=== PATIENT | male | born 1940 | race Caucasian/White ===

== ENCOUNTER 2017-12-26 22:27 | Inpatient (IN) | payer OTHER ==
[2017-12-26] MEDS ORDERED: ACETAMINOPHEN 1000 MG/100 ML VIAL (NON FORMULARY) IVPB ONE (23:28)
[2017-12-26] MEDS ORDERED: SODIUM CHLORIDE 1,000 ML IV STA (23:28)
[2017-12-26] MEDS ORDERED: morphine CARPU-JECT 4 MG/1 ML DISP.SYRIN IVPUSH ONE (23:41)
[2017-12-26] MEDS ORDERED: MORPHINE SULFATE 10 MG/1 ML *VIAL ONE (23:44)
[2017-12-26 23:58] LABS: BASO % 0.3 % (0-2.0); EOS % 0.2 % (0-4.5); HEMATOCRIT 44.7 % (35.4-49); MCH 29.6 pg (25.7-33.7); MCHC 33.5 g/dl (32.0-35.9); MEAN CELL VOLUME 88.5 fl (80-96); MEAN PLT VOLUME 6.8 fl (7.5-11.1); MONO % 7.3 % (3.8-10.2); NEUT % 79.2 % (42.8-82.8); PLATELET COUNT 264 K/MM3 (134-434); RBC 5.06 M/mm3 (4.00-5.60); WHITE BLOOD COUNT 6.7 K/mm3 (4.0-10.0)
[2017-12-27 00:13] LABS: INR 0.98 (0.82-1.09); PROTHROMBIN TIME (PATIENT) 11.1 SEC (9.98-11.88)
[2017-12-27] MEDS ORDERED: LIDOCAINE HCL 2% JELLY (5 ML/TUBE) ONE (00:13)
--- NOTE | 2017-12-27 00:13 | PDOC ---
History of Present Illness - General Chief Complaint: Urinary Catheter Problem Stated Complaint: PAIN Time Seen by Provider: 12/26/17 23:22 - History of Present Illness Initial Comments: 12/26/17 23:54 "The patient is a 77 year old male presenting with clogged jimenez catheter. 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 Kovacs. He subsequently had a jimenez placed and was discharged from the hospital at 8PM today. Pt states that the jimenez did not drain any urine since it was placed. He has only seen a small amount of blood clot pass into the jimenez bag. He now complains of severe suprapubic pain The patient denies chest pain, shortness of breath, headache and dizziness. Denies fever, chills, nausea, vomit, diarrhea and constipation. Allergies: NKA Past surgical history: None reported Social history: No reported alcohol, drug, or cigarette use. Urologist: Dr. Kovacs" Past History - Past Medical History Allergies/Adverse Reactions: Allergies Allergy/AdvReac Type Severity Reaction Status Date / Time No Known Allergies Allergy Verified 12/26/17 22:52 Home Medications: Ambulatory Orders Tamsulosin HCl [Flomax -] 1 tab PO DAILY 12/23/17 Disorders: Yes (BPH) Hypercholesterolemia: Yes - Suicide/Smoking/Psychosocial Hx Smoking History: Never smoked Have you smoked in the past 12 months: No Information on smoking cessation initiated: No Hx Alcohol Use: No Drug/Substance Use Hx: No Substance Use Type: None Hx Substance Use Treatment: No Review of Systems - Review of Systems Comments:: 12/27/17 00:13 "GENERAL/CONSTITUTIONAL: No fever or chills. No weakness. HEAD, EYES, EARS, NOSE AND THROAT: No change in vision. No ear pain or discharge. No sore throat. CARDIOVASCULAR: No chest pain or shortness of breath. RESPIRATORY: No cough, wheezing, or hemoptysis. GASTROINTESTINAL: (+) suprapubic pain. No nausea, vomiting, diarrhea or constipation. GENITOURINARY: (+) Clogged catheter. MUSCULOSKELETAL: No joint or muscle swelling or pain. No neck or back pain. SKIN: No rash NEUROLOGIC: No headache, vertigo, loss of consciousness, or change in strength/ sensation. ENDOCRINE: No increased thirst. No abnormal weight change. HEMATOLOGIC/LYMPHATIC: No anemia, easy bleeding, or history of blood clots. ALLERGIC/IMMUNOLOGIC: No hives or skin allergy." *Physical Exam - Vital Signs Last Vital Signs Temp Pulse Resp BP Pulse Ox 97.8 F 86 16 143/63 100 12/26/17 22:47 12/26/17 22:47 12/26/17 22:47 12/26/17 22:47 12/26/17 22:47 - Physical Exam Comments: 12/27/17 00:14 "GENERAL: Awake, alert, and fully oriented, in no acute distress HEAD: No signs of trauma EYES: PERRLA, EOMI, sclera anicteric, conjunctiva clear ENT: Auricles normal inspection, hearing grossly normal, nares patent, oropharynx clear without exudates. Moist mucosa NECK: Nontender, no stepoffs, Normal ROM, supple, no lymphadenopathy, JVD, or masses LUNGS: Breath sounds equal, clear to auscultation bilaterally. No wheezes, and no crackles HEART: Regular rate and rhythm, normal S1 and S2, no murmurs, rubs or gallops ABDOMEN: (+) suprapubic tenderness, normoactive bowel sounds. No guarding, no rebound. No masses EXTREMITIES: Normal range of motion, no edema. No clubbing or cyanosis. No cords, erythema, or tenderness : (+) Jimenez catheter in place, scant urine in bag with blood clot in tube and bag NEUROLOGICAL: Cranial nerves II through XII intact. 5/5 strength and sensation in all extremities, Normal speech, normal gait, normal cerebellar function SKIN: Warm, Dry, normal turgor, no rashes or lesions noted." ED Treatment Course - LABORATORY CBC & Chemistry Diagram: 12/26/17 23:53 12/26/17 23:53 Medical Decision Making - Medical Decision Making 12/27/17 00:16 77 M with clogged jimenez 2/2 blood clots. - Attempted irrigation - able to flush jimenez easily but without return of urine - Significant resistance met with attempt to pull back on syringe, with evacuation of small amount of clot - Spoke with Dr. Doyle, urologist information engineer for Dr. Kovacs, who recommended removal of jimenez catheter and replacement with larger catheter - Jimenez removed. Attempt to replace catheter unsuccessful - Spoke with Dr. Doyle again, who is now en route to ED to evaluate pt. 12/27/17 01:32 Coude catheter placed by Dr. Doyle, blood clots irrigated. Pt placed on CBI, to be admitted to hospitalist. 12/27/17 01:[address] Lopes as obs *DC/Admit/Observation/Transfer Diagnosis at time of Disposition: Gross hematuria - Discharge Dispostion Admit: Yes - Referrals Referrals: Sharri Tovar [Primary Care Provider] - - Patient Instructions - Post Discharge Activity - Attestations Physician Attestion: 12/27/17 01:47 I, Dr. Glenn Vasquez MD, attest that this document has been prepared under my direction and personally reviewed by me in its entirety. I further attest, that it accurately reflects all work, treatment, procedures and medical decision -making performed by me.
[2017-12-27 00:16] LABS: ACTIVATED PTT 22.4 SECONDS (26.9-34.4)
[2017-12-27 00:24] LABS: ALBUMIN 3.7 g/dl (3.4-5.0); ALK PHOS 93 U/L (45-117); ANION GAP 12 (8-16); BILIRUBIN,TOTAL 0.6 mg/dL (0.2-1.0); BLOOD UREA NITROGEN 22 mg/dL (7-18); CALCIUM 8.8 mg/dL (8.5-10.1); CHLORIDE 94 mmol/L (98-107); CO2 25 mmol/L (21-32); CREATININE 1.5 mg/dL (0.7-1.3); GLUCOSE,RANDOM 130 mg/dL (74-106); POTASSIUM 4.9 mmol/L (3.5-5.1); SGOT/AST 29 U/L (15-37); SGPT/ALT 20 U/L (12-78); SODIUM 131 mmol/L (136-145); TOT PROT 7.5 g/dl (6.4-8.2)
[2017-12-27] MEDS ORDERED: morphine CARPU-JECT 4 MG/1 ML DISP.SYRIN IVPUSH ONE (00:27)
[2017-12-27] MEDS ORDERED: MORPHINE SULFATE 10 MG/1 ML *VIAL ONE (00:32)
[2017-12-27] MEDS ORDERED: LIDOCAINE HCL 2% JELLY 10 ML CARTRIDGE ONE (00:50)
[2017-12-27] MEDS ORDERED: LIDOCAINE HCL 2% JELLY (30 ML/TUBE) TP ONE (01:12)
--- NOTE | 2017-12-27 01:18 | CON.GU ---
Consult - History of Present Illness History of Present Illness: 77 yo male s/p TURBT earlier today, now with gross hematuria and clot retention. 3 way jimenez catheter placed and multiple clots irrigated. Pt feeling much more comfort. - Alcohol/Substance Use Hx Alcohol Use: No - Smoking History Smoking history: Never smoked Have you smoked in the past 12 months: No Home Medications - Allergies Allergies/Adverse Reactions: Allergies Allergy/AdvReac Type Severity Reaction Status Date / Time No Known Allergies Allergy Verified 12/26/17 22:52 - Home Medications Home Medications: Ambulatory Orders Tamsulosin HCl [Flomax -] 1 tab PO DAILY 12/23/17 Physical Exam- Vital Signs: Vital Signs Temperature 97.8 F 12/26/17 22:47 Pulse Rate 86 12/26/17 22:47 Respiratory Rate 16 12/26/17 22:47 Blood Pressure 143/63 12/26/17 22:47 O2 Sat by Pulse Oximetry (%) 100 12/26/17 22:47 Renal/: Yes: Hematuria Labs: CBC, BMP 12/26/17 23:53 12/26/17 23:53 Problem List - Problems (1) Gross hematuria Assessment/Plan: jimenez to CBI will start Amicar Code(s): R31.0 - GROSS HEMATURIA
[2017-12-27] MEDS ORDERED: AMINOCAPROIC ACID IVPB ONE (01:30)
[2017-12-27] MEDS ORDERED: SODIUM CHLORIDE IVPB ONE (01:30)
[2017-12-27] MEDS ORDERED: CEFTRIAXONE 1 GM/50 ML BAG ONE (02:03)
[2017-12-27] MEDS: CEFTRIAXONE 1 G/50 ML PREMIX 50 ML IVPB SCH ×2 (02:07→20:40)
[2017-12-27 02:54] VITALS: BMI 27.4
--- NOTE | 2017-12-27 02:58 | PN ---
Teaching Attending Note Name of Resident: Darshana Brown ATTENDING PHYSICIAN STATEMENT I saw and evaluated the patient. Chart, data reviewed. I reviewed the resident's note and discussed the case with the resident. I agree with the resident's findings and plan as documented. SUBJECTIVE: 77 y/o M with PMhx of BPH, HLD, s/p resection of bladder mass 12/26, d/c with jimenez presented with severe suprapubic abdominal pain that started shortly after procedure. Jimenez was not draining, blood clots were draining in jimenez bag. Urology (Dr. Doyle) saw patient in the ED and placed 3 way catheter, and performed irrigation which relieved the obstruction and patient felt immediate relief. Urine which was draining was red. OBJECTIVE: Last Vital Signs Temp Pulse Resp BP Pulse Ox 97.8 F 76 18 162/82 97 12/27/17 02:50 12/27/17 02:50 12/27/17 02:50 12/27/17 02:50 12/27/17 03:01 general -nad, appears comfortable heent- at, nc, moist oral mucosa neck -supple cv -s1+s2+ rrr chest- cta b/l abdomen -soft, nt, BS+ jimenez in place -draining reddish urine Abnormal Lab Results 12/26/17 12/26/17 12/26/17 23:53 23:53 23:53 MPV 6.8 L PTT (Actin FS) 22.4 L Sodium 131 L Chloride 94 L BUN 22 H Creatinine 1.5 H D Random Glucose 130 H D ASSESSMENT AND PLAN: #Jimenez catheter obstruction- blood clots, now relieved after catheter change and irrigation. Hematuria however BP and H,H stable -continue jimenez catheter -monitor BP closely -monitor H,H -urology evaluation -avoid ASA or heparin #PRETTY- likely obstructive in nature as patient had blood clots in urine -renal/bladder U/S -UA, urine lytes -IV fluid hydration -avoid nephrotoxic meds -I/O , daily weights #DVT ppx -SCDs
[2017-12-27] MEDS ORDERED: SODIUM CHLORIDE 1,000 ML IV SCH (03:30)
[2017-12-27] MEDS: SODIUM CHLORIDE IVPB SCH ×6 (03:38→22:33)
[2017-12-27] MEDS: AMINOCAPROIC ACID IVPB SCH ×6 (03:38→22:33)
--- NOTE | 2017-12-27 03:50 | HP ---
HISTORY OF PRESENT ILLNESS: Patient is a 77 y/o M with PMhx of BPH, HLD, s/p TURBT 12/26, discharged yesterday with jimenez presented with severe suprapubic abdominal pain that started after procedure. Patient states the jimenez did not drain any urine since it was placed. Patient saw blood clots pass in the jimenez bag. Urology (Dr. Doyle) saw patient in the ED and placed 3 way catheter which relieved the obstruction. Patient says he is currently asymptomatic. Denies abdominal pain, fever, nausea, vomiting, chest pain, dizziness, sob, dysuria. ER course was notable for: (1) Fluids, 1x Ceftriaxone (2) Abicar, 3 way catheter insertion Recent Travel: n/a PAST MEDICAL HISTORY: BPH, HLD PAST SURGICAL HISTORY: none Social History: Smoking: denies Alcohol: denies Drugs: denies Family History: Allergies No Known Allergies Allergy (Verified 12/26/17 22:52) HOME MEDICATIONS: Home Medications Medication Instructions Recorded Tamsulosin HCl [Flomax -] 1 tab PO DAILY 12/23/17 Atorvastatin Ca [Lipitor] 20 mg PO HS 12/27/17 REVIEW OF SYSTEMS CONSTITUTIONAL: Absent: fever, chills, diaphoresis, generalized weakness, malaise, loss of appetite, weight change HEENT: Absent: rhinorrhea, nasal congestion, throat pain, throat swelling, difficulty swallowing, mouth swelling, ear pain, eye pain, visual changes CARDIOVASCULAR: Absent: chest pain, syncope, palpitations, irregular heart rate, lightheadedness , peripheral edema RESPIRATORY: Absent: cough, shortness of breath, dyspnea with exertion, orthopnea, wheezing, stridor, hemoptysis GASTROINTESTINAL: Absent: abdominal pain, abdominal distension, nausea, vomiting, diarrhea, constipation, melena, hematochezia GENITOURINARY: Absent: dysuria, frequency, urgency, hesitancy, hematuria, flank pain, genital pain MUSCULOSKELETAL: Absent: myalgia, arthralgia, joint swelling, back pain, neck pain SKIN: Absent: rash, itching, pallor HEMATOLOGIC/IMMUNOLOGIC: Absent: easy bleeding, easy bruising, lymphadenopathy, frequent infections ENDOCRINE: Absent: unexplained weight gain, unexplained weight loss, heat intolerance, cold intolerance NEUROLOGIC: Absent: headache, focal weakness or paresthesias, dizziness, unsteady gait, seizure, mental status changes, bladder or bowel incontinence PSYCHIATRIC: Absent: anxiety, depression, suicidal or homicidal ideation, hallucinations. PHYSICAL EXAMINATION Vital Signs - 24 hr 12/26/17 12/27/17 12/27/17 22:47 02:50 03:01 Temperature 97.8 F 97.8 F Pulse Rate 86 76 Respiratory 16 18 Rate Blood Pressure 143/63 162/82 O2 Sat by Pulse 100 97 Oximetry (%) GENERAL: Awake, alert, and fully oriented, in no acute distress. HEAD: Normal with no signs of trauma. EYES: Pupils equal, round and reactive to light, extraocular movements intact, EARS, NOSE, THROAT: oropharynx clear without exudates. Moist mucous membranes. NECK: supple without lymphadenopathy, JVD, or masses. LUNGS: Breath sounds equal, clear to auscultation bilaterally. No wheezes, and no crackles. No accessory muscle use. HEART: Regular rate and rhythm, normal S1 and S2 without murmur, rub or gallop. ABDOMEN: Soft, nontender, not distended, normoactive bowel sounds, no guarding, no rebound, no masses. No hepatomegaly or splenomegaly. UPPER EXTREMITIES: 2+ pulses, warm, well-perfused. No cyanosis. No clubbing. No peripheral edema. LOWER EXTREMITIES: 2+ pulses, warm, well-perfused. No calf tenderness. No peripheral edema. NEUROLOGICAL: Cranial nerves II-XII intact. Normal speech. Normal gait. PSYCHIATRIC: Cooperative. Good eye contact. Appropriate mood and affect. Laboratory Results - last 24 hr 12/26/17 12/26/17 12/26/17 23:53 23:53 23:53 WBC 6.7 RBC 5.06 Hgb 15.0 Hct 44.7 MCV 88.5 MCH 29.6 MCHC 33.5 RDW 14.0 Plt Count 264 MPV 6.8 L Neutrophils % 79.2 D Lymphocytes % 13.0 D Monocytes % 7.3 Eosinophils % 0.2 D Basophils % 0.3 PT with INR 11.10 INR 0.98 PTT (Actin FS) 22.4 L Sodium 131 L Potassium 4.9 Chloride 94 L Carbon Dioxide 25 D Anion Gap 12 BUN 22 H Creatinine 1.5 H D Creat Clearance w eGFR 45.62 Random Glucose 130 H D Calcium 8.8 Total Bilirubin 0.6 AST 29 D ALT 20 D Alkaline Phosphatase 93 Total Protein 7.5 Albumin 3.7 Blood Type Antibody Screen 12/26/17 23:53 WBC RBC Hgb Hct MCV MCH MCHC RDW Plt Count MPV Neutrophils % Lymphocytes % Monocytes % Eosinophils % Basophils % PT with INR INR PTT (Actin FS) Sodium Potassium Chloride Carbon Dioxide Anion Gap BUN Creatinine Creat Clearance w eGFR Random Glucose Calcium Total Bilirubin AST ALT Alkaline Phosphatase Total Protein Albumin Blood Type O POSITIVE Antibody Screen Negative ASSESSMENT/PLAN: 77 yo male pmhx of HLD, BPH s/p TURBT 12/26, presented with suprapubic tenderness and hematuria post-procedure and found to have obstructive uropathy. #Obstructive Uropathy -s/p TURBT 12/26 -hematuria, clot retention, suprapubic pain -Urology consulted: Dr. Doyle -3 way catheter placed which relieved obstruction -CBI -Amicar started per Urology -FU Kidney U/S -IV fluids Ns @50ml -FU am labs #PRETTY -secondary to obstructive uropathy from blood clot -IV fluids -Kidney u/s -will monitor #HLD -cont Lipitor 20mg #BPH -held Flomax -restart pending urology #FEN -IV fluids NS @50 -replete as needed -Regular diet #PPX -SCDs Obs Visit type - Emergency Visit Emergency Visit: Yes ED Registration Date: 12/27/17 Care time: The patient presented to the Emergency Department on the above date and was hospitalized for further evaluation of their emergent condition. - New Patient This patient is new to me today: Yes Date on this admission: 12/27/17 - Critical Care Critical Care patient: No Hospitalist Screening - Colonoscopy Questionnaire Colonoscopy Questionnaire: Colonoscopy Questionnaire - Patient: 50 - 75 years old and never had a screening colonoscopy: Unknown History of colon or rectal polyps, or CA: Unknown History of IBD, Crohn's disease or UC: Unknown History of abdominal radiation therapy as a child: Unknown - Relative: 1 with colon or rectal CA, or polyps at age 60 or younger: Unknown Colon or rectal CA diagnosed at age 45 or younger: Unknown Multiple relatives with colon or rectal CA: Unknown - Outcome: Screening Result: Negative Screen
[2017-12-27] MEDS ORDERED: SIMETHICONE 80 MG TAB.CHEW (FP) PO ONE (04:02)
[2017-12-27 07:43] LABS: ALBUMIN 2.9 g/dl (3.4-5.0); ANION GAP 11 (8-16); BLOOD UREA NITROGEN 20 mg/dL (7-18); CALCIUM 8.2 mg/dL (8.5-10.1); CHLORIDE 101 mmol/L (98-107); CO2 24 mmol/L (21-32); GLUCOSE,RANDOM 111 mg/dL (74-106); POTASSIUM 4.6 mmol/L (3.5-5.1); SODIUM 136 mmol/L (136-145)
[2017-12-27 07:48] LABS: ALK PHOS 72 U/L (45-117); BILIRUBIN,TOTAL 0.6 mg/dL (0.2-1.0); CREATININE 1.1 mg/dL (0.7-1.3); SGOT/AST 26 U/L (15-37); SGPT/ALT 15 U/L (12-78); TOT PROT 5.9 g/dl (6.4-8.2)
[2017-12-27 07:51] LABS: INR 1.05 (0.82-1.09); PROTHROMBIN TIME (PATIENT) 11.9 SEC (9.98-11.88)
[2017-12-27 07:54] LABS: HEMOGLOBIN 12.3 GM/dL (11.7-16.9); MCH 30.4 pg (25.7-33.7); MCHC 34.2 g/dl (32.0-35.9); MEAN CELL VOLUME 88.8 fl (80-96); MEAN PLT VOLUME 7.1 fl (7.5-11.1); PLATELET COUNT 218 K/MM3 (134-434); RBC 4.05 M/mm3 (4.00-5.60); RDW 13.9 % (11.9-15.9); WHITE BLOOD COUNT 8.9 K/mm3 (4.0-10.0)
--- NOTE | 2017-12-27 09:17 | HOSP ---
Subjective - Review of Symptoms Subjective: abdominal pain has improved. some discomfort and pain when CBI is held. denies CP, SOB, fever, chills, N/V/C/D Current Medications Generic Name Dose Route Start Last Admin Trade Name Fernando PRN Reason Stop Dose Admin Atorvastatin Calcium 20 mg 12/27/17 22:00 Lipitor - PO HS BELKIS CEFTRIAXONE 1 G/50 ML PREMIX 50 mls @ 100 mls/hr 12/27/17 01:30 12/27/17 02: 07 Ceftriaxone 1 Gm-D5w Bag IVPB 100 mls/hr DAILY BELKIS Administration Aminocaproic Acid 1 gm/ Sodium 54 mls @ 54 mls/hr 12/27/17 02:30 12/27/17 07: 11 Chloride IVPB 12/27/17 23:29 54 mls/hr Q4H BELKIS Administration Sodium Chloride 1,000 mls @ 75 mls/hr 12/27/17 03:30 12/27/17 04:00 Normal Saline - IV 75 mls/hr ASDIR BELKIS Administration Last Vital Signs Temp Pulse Resp BP Pulse Ox 97.1 F L 63 18 127/69 97 12/27/17 06:35 12/27/17 06:35 12/27/17 06:35 12/27/17 06:35 12/27/17 03:21 General NAD CV S1 s2 RRR no murmur/rub/gallop Lungs CTA B/L no wheezing/rales/rhonchi Abdomen +suprapubic tenderness, ND no rebound or guarding Extremities no pedal edema CBCD WBC 8.9 K/mm3 (4.0-10.0) D 12/27/17 06:30 RBC 4.05 M/mm3 (4.00-5.60) 12/27/17 06:30 Hgb 12.3 GM/dL (11.7-16.9) D 12/27/17 06:30 Hct 36.0 % (35.4-49) D 12/27/17 06:30 MCV 88.8 fl (80-96) 12/27/17 06:30 MCHC 34.2 g/dl (32.0-35.9) 12/27/17 06:30 RDW 13.9 % (11.9-15.9) 12/27/17 06:30 Plt Count 218 K/MM3 (134-434) 12/27/17 06:30 MPV 7.1 fl (7.5-11.1) L 12/27/17 06:30 CMP Sodium 136 mmol/L (136-145) 12/27/17 06:30 Potassium 4.6 mmol/L (3.5-5.1) 12/27/17 06:30 Chloride 101 mmol/L (98-107) 12/27/17 06:30 Carbon Dioxide 24 mmol/L (21-32) 12/27/17 06:30 Anion Gap 11 (8-16) 12/27/17 06:30 BUN 20 mg/dL (7-18) H 12/27/17 06:30 Creatinine 1.1 mg/dL (0.7-1.3) D 12/27/17 06:30 Creat Clearance w eGFR > 60 (>60) 12/27/17 06:30 Calcium 8.2 mg/dL (8.5-10.1) L 12/27/17 06:30 Total Bilirubin 0.6 mg/dL (0.2-1.0) 12/27/17 06:30 AST 26 U/L (15-37) 12/27/17 06:30 ALT 15 U/L (12-78) D 12/27/17 06:30 Alkaline Phosphatase 72 U/L (45-117) D 12/27/17 06:30 Total Protein 5.9 g/dl (6.4-8.2) L D 12/27/17 06:30 Albumin 2.9 g/dl (3.4-5.0) L D 12/27/17 06:30 A/P 77yo M with PMH dyslipidemia and BPH s/p TURP on 12/26 presenting with abdominal pain and hematuria 1. Hematuria- clinically improved, CBI running. urine now pinkish. on empiric abx. ceftriaxone day 1. s/p aminocaproic acid. urology on board. further management per urology. pain control 2. Acute blood loss anemia- due to hematuria. significant drop. repeat CBC this afternoon. txn as needed. pt never received txn in the past 3. PRETTY- due to obstructive uropathy. improving. will d/c IVF. avoid nephrotoxic agents 4. Hyponatremia- on IVF. resolved. d/c IVF 5.dyslipidemia- on statin 6. DVT ppx- SCD Physical Examination Vital Signs: Vital Signs Temperature 97.1 F L 12/27/17 06:35 Pulse Rate 63 12/27/17 06:35 Respiratory Rate 18 12/27/17 06:35 Blood Pressure 127/69 12/27/17 06:35 O2 Sat by Pulse Oximetry (%) 97 12/27/17 03:21 Labs: CBC, BMP 12/27/17 06:30 12/27/17 06:30
[2017-12-27] MEDS ORDERED: PT OWN MED DRAWER 7, Y5N ONE ×2 (10:20→16:48)
--- NOTE | 2017-12-27 10:49 | PN ---
Progress Note (short form) - Note Progress Note: afebrile urine dark pink on brisk CBI bladder irrigated manually w 3 L sterile H20, multiple clots evacuated cont CBI cont Amicar Problem List - Problems (1) Gross hematuria Code(s): R31.0 - GROSS HEMATURIA
[2017-12-27 14:36] LABS: HEMOGLOBIN 10.7 GM/dL (11.7-16.9); MCH 30.5 pg (25.7-33.7); MCHC 34.5 g/dl (32.0-35.9); MEAN CELL VOLUME 88.5 fl (80-96); MEAN PLT VOLUME 6.9 fl (7.5-11.1); PLATELET COUNT 206 K/MM3 (134-434); RBC 3.51 M/mm3 (4.00-5.60); RDW 14.2 % (11.9-15.9); WHITE BLOOD COUNT 6.6 K/mm3 (4.0-10.0)
[2017-12-27 20:24] LABS: HEMATOCRIT 29.2 % (35.4-49); MCH 30.3 pg (25.7-33.7); MCHC 34.2 g/dl (32.0-35.9); MEAN CELL VOLUME 88.6 fl (80-96); PLATELET COUNT 195 K/MM3 (134-434); RDW 14.1 % (11.9-15.9); WHITE BLOOD COUNT 5.5 K/mm3 (4.0-10.0)
[2017-12-27] MEDS: ATORVASTATIN CA 20 MG TABLET (FP) PO SCH (21:20)
[2017-12-27] MEDS ORDERED: AMINOCAPROIC ACID 5 GM/20 ML VIAL IVPB ONE (23:16)
[2017-12-28] MEDS ORDERED: SODIUM CHLORIDE IVPB SCH (02:30)
[2017-12-28] MEDS ORDERED: AMINOCAPROIC ACID IVPB SCH (02:30)
[2017-12-28 07:47] LABS: HEMATOCRIT 29.8 % (35.4-49); HEMOGLOBIN 10.2 GM/dL (11.7-16.9); MCH 30.4 pg (25.7-33.7); MCHC 34.2 g/dl (32.0-35.9); MEAN CELL VOLUME 88.8 fl (80-96); PLATELET COUNT 196 K/MM3 (134-434); RBC 3.35 M/mm3 (4.00-5.60); RDW 14.3 % (11.9-15.9); WHITE BLOOD COUNT 6.5 K/mm3 (4.0-10.0)
[2017-12-28 08:01] LABS: ANION GAP 8 (8-16); BLOOD UREA NITROGEN 14 mg/dL (7-18); CALCIUM 8.3 mg/dL (8.5-10.1); CHLORIDE 105 mmol/L (98-107); CO2 29 mmol/L (21-32); GLUCOSE,RANDOM 94 mg/dL (74-106); POTASSIUM 4.5 mmol/L (3.5-5.1); SODIUM 142 mmol/L (136-145)
--- NOTE | 2017-12-28 09:16 | PN ---
Progress Note (short form) - Note Progress Note: afebrile urine light pink on slow CBI hold CBI cont Amicar Problem List - Problems (1) Gross hematuria Code(s): R31.0 - GROSS HEMATURIA
[2017-12-28] MEDS: POLYETHYLENE GLYCOL 3350 119 GM BTL PO SCH (10:52)
[2017-12-28] MEDS: CEFTRIAXONE 1 G/50 ML PREMIX 50 ML IVPB SCH (10:53)
--- NOTE | 2017-12-28 11:06 | PN ---
Physical Exam: SUBJECTIVE: Patient seen and examined ; s/p sterile water bladder irrigation; with hematuria. No fever, chills, dysuria, abdominal pain. OBJECTIVE: Vital Signs Period Temp Pulse Resp BP Sys/More[place] Pulse Ox Last 24 Hr 97.9 F-98.4 F 58-65 18-20 102-134/47-60 94-94 GENERAL: The patient is awake, alert, and fully oriented, in no acute distress. LUNGS: Breath sounds equal, clear to auscultation bilaterally, no wheezes, no crackles, no accessory muscle use. HEART: Regular rate and rhythm, S1, S2 without murmur, rub or gallop. ABDOMEN: Soft, nontender, nondistended, normoactive bowel sounds, no guarding, no rebound, no hepatosplenomegaly, no masses. EXTREMITIES: 2+ pulses, warm, well-perfused, no edema. with [address]; pink urine in jimenez bag; no clots Laboratory Results - last 24 hr 12/27/17 12/27/17 12/28/17 14:00 19:42 06:00 WBC 6.6 5.5 6.5 RBC 3.51 L 3.30 L 3.35 L Hgb 10.7 L D 10.0 L 10.2 L Hct 31.0 L 29.2 L 29.8 L MCV 88.5 88.6 88.8 MCH 30.5 30.3 30.4 MCHC 34.5 34.2 34.2 RDW 14.2 14.1 14.3 Plt Count 206 195 196 MPV 6.9 L 7.0 L 7.0 L Sodium Potassium Chloride Carbon Dioxide Anion Gap BUN Creatinine Random Glucose Calcium 12/28/17 06:00 WBC RBC Hgb Hct MCV MCH MCHC RDW Plt Count MPV Sodium 142 Potassium 4.5 Chloride 105 Carbon Dioxide 29 D Anion Gap 8 BUN 14 D Creatinine 1.0 Random Glucose 94 Calcium 8.3 L Active Medications Generic Name Dose Route Start Last Admin Trade Name Freq PRN Reason Stop Dose Admin Atorvastatin Calcium 20 mg 12/27/17 22:00 12/27/17 21:20 Lipitor - PO 20 mg HS BELKIS Administration CEFTRIAXONE 1 G/50 ML PREMIX 50 mls @ 100 mls/hr 12/27/17 01:30 12/28/17 10: 53 Ceftriaxone 1 Gm-D5w Bag IVPB 100 mls/hr DAILY BELKIS Administration Polyethylene Glycol 17 gm 12/28/17 10:00 12/28/17 10:52 Miralax (For Daily Use) - PO 17 gm DAILY BELKIS Administration Senna/Docusate Sodium 2 tablet 12/28/17 22:00 Pericolace - PO 12/29/17 09:06 HS EBLKIS ASSESSMENT/PLAN: This is a 77 year old male with BPH s/p TURBT, transurethral resection of bladder tumor on 12/26, presents after seeing gross hematuria. #Gross hematuria after TURBT for bladder tumor removal; improving -3 way catheter; -s/p central bladder irrigation ; -cont amincar to assist in stopping bleed -ceftriaxone day 3 -urology on board #anemia; sec to acute blood loss; stable; trend cbc #PRETTY: resolved; sec to obstructive uropathy from blood clots #constipation; bowel regimen Disposition; once bleeding stops can dc home Case discussed with attending Dr. Diann Ren- PGY 2 Problem List - Problems (1) Gross hematuria Code(s): R31.0 - GROSS HEMATURIA Visit type - Emergency Visit Emergency Visit: Yes ED Registration Date: 12/28/17 Care time: The patient presented to the Emergency Department on the above date and was hospitalized for further evaluation of their emergent condition. - New Patient This patient is new to me today: Yes Date on this admission: 12/28/17 - Critical Care Critical Care patient: No
--- NOTE | 2017-12-28 13:48 | PN ---
Teaching Attending Note Name of Resident: Gabbie Ren ATTENDING PHYSICIAN STATEMENT I saw and evaluated the patient. I reviewed the resident's note and discussed the case with the resident. I agree with the resident's findings and plan as documented. SUBJECTIVE:c/o constipation. states no BM since Friday. denies CP, SOB< fever, chills, N/V/C/D. no abdominal cramping OBJECTIVE: Last Vital Signs Temp Pulse Resp BP Pulse Ox 98.1 F 59 L 20 118/58 94 L 12/28/17 13:33 12/28/17 13:33 12/28/17 13:33 12/28/17 13:33 12/28/17 04:00 General NAD Abdomen soft NT slightly distended ASSESSMENT AND PLAN: 77yo M with PMH dyslipidemia and BPH s/p TURP on 12/26 presenting with abdominal pain and hematuria 1. Hematuria-CBI turned off this AM. now on clamp to monitor for blood clots. Hgb stable. on ceftriaxone day 2. maintain jimenez. further management per urology. pain control 2. Acute blood loss anemia- due to hematuria. Hgb now stable. can monitor daily. no indication for txn. 3. PRETTY- due to obstructive uropathy. improving. resolved. avoid nephrotoxic agents 4. Hyponatremia- on IVF. resolved. 5. Constipation- give mirlax, start stool softeners. if no BM can consider enema tomorrow 6.dyslipidemia- on statin 7. DVT ppx- SCD 8. if hematuria stops and Hgb remains stable can d/c tomorrow.
[2017-12-28] MEDS ORDERED: POLYETHYLENE GLYCOL 3350 119 GM BTL PO ONE (19:00)
[2017-12-28] MEDS: ATORVASTATIN CA 20 MG TABLET (FP) PO SCH (21:39)
[2017-12-28] MEDS ORDERED: SENNOSIDES/DOCUSATE COMBO (SENNA PLUS) TABLET (UD) PO SCH (22:00)
--- NOTE | 2017-12-29 06:08 | PN ---
Physical Exam: SUBJECTIVE: Patient seen and examined by me this AM - No major events overnight. Pt afebrile, hemo stable. Jimenez irrigated with moderate amount of clots, still w/ hematuria. Ambulating well. Mild abdominal pain in afternoon yesterday, leakage around jimenez. Pt endorse BL renal "spasms" intermittently overnight, lasting approximating 5-10 mins. No F/C/N/V/D. Still w / constipation, no BM for last 4 days. No CP, cough, SOB, lightheadness, vision changes. OBJECTIVE: Vital Signs Intake & Output 12/26/17 12/27/17 12/28/17 12/29/17 22:59 22:59 23:59 23:59 Intake Total 800 Output Total 1200 Balance -400 Weight Period Temp Pulse Resp BP Sys/Morelos Pulse Ox Last 24 Hr 98.1 F-99.2 F 54-67 18-20 118-147/58-79 96-98 GENERAL: A&Ox3, NAD HEAD: Normal with no signs of trauma. EYES: PERRL, sclera anicteric, conjunctiva clear. No ptosis. ENT: Ears normal, nares patent, oropharynx clear without exudates, moist mucous membranes. NECK: Trachea midline, full range of motion, supple. LUNGS: Breath sounds equal, clear to auscultation bilaterally, no wheezes, no crackles, no accessory muscle use. HEART: Regular rate and rhythm, S1, S2 without murmur, rub or gallop. ABDOMEN: +Suprapubic tenderness, TTP in LLQ. Slight abdominal distension. Hypoactive bowel sounds, no guarding, no rebound, no hepatosplenomegaly, no masses. EXTREMITIES: 2+ DP/PT pulses, warm, well-perfused, no edema. NEUROLOGICAL: Cranial nerves II through XII grossly intact. Normal speech, gait not observed. 5/5 strength, preserved sensation to light touch in all extremities. GENITAL: Blood at urethral meatus. Jimenez in place, clots noted in tubing w/ dark hematuria in bag. PSYCH: Normal mood, normal affect. SKIN: Warm, dry, normal turgor Laboratory Results - last 24 hr CBC, BMP 12/29/17 06:25 12/28/17 06:00 12/28/17 06:00 12/28/17 06:00 12/28/17 12/28/17 06:00 06:00 WBC 6.5 RBC 3.35 L Hgb 10.2 L Hct 29.8 L MCV 88.8 MCH 30.4 MCHC 34.2 RDW 14.3 Plt Count 196 MPV 7.0 L Sodium 142 Potassium 4.5 Chloride 105 Carbon Dioxide 29 D Anion Gap 8 BUN 14 D Creatinine 1.0 Random Glucose 94 Calcium 8.3 L Active Medications Generic Name Dose Route Start Last Admin Trade Name Fernando PRN Reason Stop Dose Admin Atorvastatin Calcium 20 mg 12/27/17 22:00 12/28/17 21:39 Lipitor - PO 20 mg HS BELKIS Administration CEFTRIAXONE 1 G/50 ML PREMIX 50 mls @ 100 mls/hr 12/27/17 01:30 12/28/17 10: 53 Ceftriaxone 1 Gm-D5w Bag IVPB 100 mls/hr DAILY BELKIS Administration Polyethylene Glycol 17 gm 12/28/17 10:00 12/28/17 10:52 Miralax (For Daily Use) - PO 17 gm DAILY BELKIS Administration Senna/Docusate Sodium 2 tablet 12/28/17 22:00 12/28/17 21:39 Pericolace - PO 12/29/17 09:06 2 tablet HS BELKIS Administration No micro No imaging ASSESSMENT/PLAN: 77 yo man w/ pmh of HLD, BPH s/p TURP on 12/26, who presented with suprapubic abdominal pain and hematuria, now s/p placement of 3-way catheter for CBI by urology with persistent hematuria, passage of clots. CBI d/c'ed overnight, however restarted in AM per urology recs. Hgb stable. #Hematuria - multiple blood clots, hematuria overnight; hgb stable; - Restarted CBI this AM per urology recs; turn off CBI at midnight per urology recs - Urology following, recs appreciated - If no resolution, will likely require cystoscopy - No AC due to bleed - Ceftriaxone day 3 - c/w PO amicar #Anemia - likely secondary to acute blood loss. stable, 10.2 -> 10.9 today - Trend H/H - Transfuse at Hgb <7 #PRETTY - 2/2 obstructive uropathy. Resolved - Trend lytes - Avoid nephrotoxic agents #Hyponatremia - Resolved. On IVFs - Trend Na #Constipation - Senna - Increased Miralax from daily to BID - Consider enema if unresolved #HLD - c/w statin #PPX - SCDs FEN PO hydration Trend lytes Regular diet Plan discussed with attending, Dr. Diann Watkins, PGY1 Visit type - Emergency Visit Emergency Visit: Yes ED Registration Date: 12/28/17 Care time: The patient presented to the Emergency Department on the above date and was hospitalized for further evaluation of their emergent condition. - New Patient This patient is new to me today: Yes Date on this admission: 12/30/17 - Critical Care Critical Care patient: No
[2017-12-29 08:15] LABS: HEMATOCRIT 31.8 % (35.4-49); HEMOGLOBIN 10.9 GM/dL (11.7-16.9); MCH 30.2 pg (25.7-33.7); MCHC 34.3 g/dl (32.0-35.9); MEAN CELL VOLUME 87.9 fl (80-96); MEAN PLT VOLUME 7.2 fl (7.5-11.1); PLATELET COUNT 210 K/MM3 (134-434); RBC 3.61 M/mm3 (4.00-5.60); RDW 13.8 % (11.9-15.9); WHITE BLOOD COUNT 7.6 K/mm3 (4.0-10.0)
[2017-12-29] MEDS: POLYETHYLENE GLYCOL 3350 119 GM BTL PO SCH ×2 (11:04→21:33)
[2017-12-29] MEDS: CEFTRIAXONE 1 G/50 ML PREMIX 50 ML IVPB SCH (11:04)
--- NOTE | 2017-12-29 13:22 | PN ---
Teaching Attending Note Name of Resident: Arthur Watkins ATTENDING PHYSICIAN STATEMENT I saw and evaluated the patient. I reviewed the resident's note and discussed the case with the resident. I agree with the resident's findings and plan as documented. SUBJECTIVE:passing multiple clots, +pain and cramping with clots.No BM.denies CP ,SOB,fever,chills, N.V OBJECTIVE: Last Vital Signs Temp Pulse Resp BP Pulse Ox 97.6 F 59 L 17 155/76 98 12/29/17 11:55 12/29/17 11:55 12/29/17 11:55 12/29/17 11:55 12/28/17 20:34 General NAD Abdomen soft NT slightly distended +supraubic tenderness ASSESSMENT AND PLAN: 77yo M with PMH dyslipidemia and BPH s/p TURP on 12/26 presenting with abdominal pain and hematuria 1. Hematuria-continues to ahve multiple clots and pain. likely require CBI to be re-started vs cystoscopy repeated if does not stop. maintain jimenez. on ceftriaxone day 3. further management per urology. pain control 2. Acute blood loss anemia- due to hematuria. Hgb now stable. no indication for txn. 3. PRETTY- due to obstructive uropathy. improving. resolved. avoid nephrotoxic agents 4. Hyponatremia- on IVF. resolved. 5. Constipation- no BM. continue mirlax and stool softeners. if no BM can consider enema tomorrow 6.dyslipidemia- on statin 7. DVT ppx- SCD
--- NOTE | 2017-12-29 14:24 | PN ---
Progress Note (short form) - Note Progress Note: afebrile had to be irrigated manually overnight for clots after CBI was turned off yesterday back on CBI now off Amicar restart CBI and po Amicar and turn off CBI at midnight tonight Problem List - Problems (1) Gross hematuria Code(s): R31.0 - GROSS HEMATURIA
[2017-12-29] MEDS: AMINOCAPROIC ACID 500 MG TABLET PO SCH ×2 (17:25→21:33)
[2017-12-29] MEDS ORDERED: PT OWN MED DRAWER 7, Y5N ONE (21:25)
[2017-12-29] MEDS: ATORVASTATIN CA 20 MG TABLET (FP) PO SCH (21:32)
--- NOTE | 2017-12-30 06:16 | PN ---
Physical Exam: SUBJECTIVE: Patient seen and examined by me this AM - No hematuria overnight. pain much improved. No active complaints. No cough, sob, cp, ab pain, f/c/n/v/d. No BM yet, bowel regimen increased. Plan for discharge tomorrow, per urology. - No BM in 4 days. Miralax increased to BID, ordered for tap water enema in PM. OBJECTIVE: Vital Signs Intake & Output 12/27/17 12/28/17 12/29/17 12/30/17 22:59 23:59 23:59 23:59 Intake Total 9800 Output Total 26697 Balance -34750 Weight Period Temp Pulse Resp BP Sys/Morelos Pulse Ox Last 24 Hr 97.6 F-98.3 F 54-65 17-20 139-159/63-78 96-98 GENERAL: A&Ox3, NAD HEAD: Normal with no signs of trauma. EYES: PERRL, sclera anicteric, conjunctiva clear. No ptosis. ENT: Ears normal, nares patent, oropharynx clear without exudates, moist mucous membranes. NECK: Trachea midline, full range of motion, supple. LUNGS: Breath sounds equal, clear to auscultation bilaterally, no wheezes, no crackles, no accessory muscle use. HEART: Regular rate and rhythm, S1, S2 without murmur, rub or gallop. ABDOMEN: Soft, NT, ND. Slight abdominal distension. Hypoactive bowel sounds, no guarding, no rebound, no hepatosplenomegaly, no masses. EXTREMITIES: 2+ DP/PT pulses, warm, well-perfused, no edema. NEUROLOGICAL: Cranial nerves II through XII grossly intact. Normal speech, gait not observed. 5/5 strength, preserved sensation to light touch in all extremities. GENITAL: No blood at meatus. Jimenez in place, no clots, blood. PSYCH: Normal mood, normal affect. SKIN: Warm, dry, normal turgor Laboratory Results - last 24 hr CBC, BMP 12/30/17 06:00 12/30/17 06:00 12/29/17 06:25 12/28/17 06:00 12/29/17 06:25 WBC 7.6 RBC 3.61 L Hgb 10.9 L Hct 31.8 L MCV 87.9 MCH 30.2 MCHC 34.3 RDW 13.8 Plt Count 210 MPV 7.2 L Active Medications Generic Name Dose Route Start Last Admin Trade Name Freq PRN Reason Stop Dose Admin Aminocaproic Acid 1,000 mg 12/29/17 14:30 12/29/17 21:33 Amicar - PO 1,000 mg TID BELKIS Administration Atorvastatin Calcium 20 mg 12/27/17 22:00 12/29/17 21:32 Lipitor - PO 20 mg HS BELKIS Administration CEFTRIAXONE 1 G/50 ML PREMIX 50 mls @ 100 mls/hr 12/27/17 01:30 12/29/17 11: 04 Ceftriaxone 1 Gm-D5w Bag IVPB 100 mls/hr DAILY BELKIS Administration Polyethylene Glycol 17 gm 12/29/17 22:00 12/29/17 21:33 Miralax (For Daily Use) - PO 17 g BID BELKIS Administration Senna 2 tab 12/30/17 00:00 Senna - PO HS PRN CONSTIPATION No micro No imaging ASSESSMENT/PLAN: 77 yo man w/ pmh of HLD, BPH s/p TURP on 12/26, who presented with suprapubic abdominal pain and hematuria, now s/p placement of 3-way catheter for CBI by urology with persistent hematuria, passage of clots. CBI d/c'ed overnight, no further hematuria, abdominal pain. Hgb stable. still w/ constipation. #Hematuria - no hematuria overnight; Hgb stable - CBI d/c'ed at midnight; pt w/ no full abdominal, lower back pain - Urology following, recs appreciated - d/c jimenez tomorrow am - Ceftriaxone day 4 - c/w PO amicar #Anemia - likely secondary to acute blood loss. stable, 12.7 today - Trend H/H - Transfuse at Hgb <7 #PRETTY - 2/2 obstructive uropathy. Resolved - Trend lytes - Avoid nephrotoxic agents #Hyponatremia - Resolved - Trend Na #Constipation - Senna - Miralax BID - tap water enema #HLD - c/w statin #PPX - SCDs FEN PO hydration Trend lytes Regular diet Plan discussed with attending, Dr. Claudia Watkins, PGY1 Visit type - Emergency Visit Emergency Visit: Yes ED Registration Date: 12/28/17 Care time: The patient presented to the Emergency Department on the above date and was hospitalized for further evaluation of their emergent condition. - New Patient This patient is new to me today: No - Critical Care Critical Care patient: No
[2017-12-30] MEDS: AMINOCAPROIC ACID 500 MG TABLET PO SCH ×3 (06:41→21:52)
[2017-12-30 07:32] LABS: HEMATOCRIT 37.9 % (35.4-49); HEMOGLOBIN 12.7 GM/dL (11.7-16.9); MCH 29.8 pg (25.7-33.7); MCHC 33.5 g/dl (32.0-35.9); MEAN CELL VOLUME 88.8 fl (80-96); MEAN PLT VOLUME 6.8 fl (7.5-11.1); PLATELET COUNT 267 K/MM3 (134-434); RBC 4.27 M/mm3 (4.00-5.60); RDW 13.9 % (11.9-15.9); WHITE BLOOD COUNT 8.9 K/mm3 (4.0-10.0)
[2017-12-30 08:13] LABS: ANION GAP 10 (8-16); BLOOD UREA NITROGEN 16 mg/dL (7-18); CHLORIDE 98 mmol/L (98-107); CO2 31 mmol/L (21-32); GLUCOSE,RANDOM 102 mg/dL (74-106); POTASSIUM 4.3 mmol/L (3.5-5.1); SODIUM 139 mmol/L (136-145)
--- NOTE | 2017-12-30 08:36 | PN ---
Progress Note (short form) - Note Progress Note: afebrile CBI turned off overnight urine now pink oral amicar restarted cont jimenez to SD monitor for hematuria today will d/c jimenez in am tomorrow and plan to d/c home tomorrow Problem List - Problems (1) Gross hematuria Code(s): R31.0 - GROSS HEMATURIA
[2017-12-30] MEDS: CEFTRIAXONE 1 G/50 ML PREMIX 50 ML IVPB SCH (10:10)
[2017-12-30] MEDS: POLYETHYLENE GLYCOL 3350 119 GM BTL PO SCH ×2 (10:10→22:00)
[2017-12-30] MEDS: SENNOSIDES 8.6MG TABLET (FP) PO PRN ×2 (10:20→21:54)
--- NOTE | 2017-12-30 15:49 | PN ---
Teaching Attending Note Name of Resident: Arthur Watkins ATTENDING PHYSICIAN STATEMENT I saw and evaluated the patient. I reviewed the resident's note and discussed the case with the resident. I agree with the resident's findings and plan as documented. SUBJECTIVE: Patient complains of constipation - he says he has not had a BM in 4 days. OBJECTIVE: Vital Signs Period Temp Pulse Resp BP Sys/Morelos Pulse Ox Last 24 Hr 97.3 F-98.3 F 54-66 18-20 139-156/63-72 93-96 HEART: S1S2, RRR LUNGS: Clear ABDOMEN: Soft, non-tender, non-distended, normal BS EXTREMITIES: No edema Laboratory Results - last 24 hr 12/30/17 12/30/17 06:00 06:00 WBC 8.9 RBC 4.27 Hgb 12.7 D Hct 37.9 D MCV 88.8 MCH 29.8 MCHC 33.5 RDW 13.9 Plt Count 267 D MPV 6.8 L Sodium 139 Potassium 4.3 Chloride 98 Carbon Dioxide 31 Anion Gap 10 BUN 16 Creatinine 1.0 Random Glucose 102 Calcium 9.0 Current Medications Generic Name Dose Route Start Last Admin Trade Name Freq PRN Reason Stop Dose Admin Aminocaproic Acid 1,000 mg 12/29/17 14:30 12/30/17 06:41 Amicar - PO 1,000 mg TID BELKIS Administration Atorvastatin Calcium 20 mg 12/27/17 22:00 12/29/17 21:32 Lipitor - PO 20 mg HS BELKIS Administration CEFTRIAXONE 1 G/50 ML PREMIX 50 mls @ 100 mls/hr 12/27/17 01:30 12/30/17 10: 10 Ceftriaxone 1 Gm-D5w Bag IVPB 100 mls/hr DAILY BELKIS Administration Polyethylene Glycol 17 gm 12/29/17 22:00 12/30/17 10:10 Miralax (For Daily Use) - PO 17 gm BID BELKIS Administration Senna 2 tab 12/30/17 00:00 12/30/17 10:20 Senna - PO 2 tab HS PRN Administration CONSTIPATION ASSESSMENT AND PLAN: This is a 77 year old man with a history of hyperlipidemia, BPH, TURP 12/26 who presented with abdominal pain and hematuria. 1. Gross hematuria - Resolved - CBI discontinued - Continue Rocephin, Amicar - Plan to remove Nix in AM 2. Acute blood loss anemia secondary to hematuria - Hemoglobin stable 3. Acute kidney injury secondary to obstructive uropathy - Resolved 4. Hyponatremia - Resolved 5. Constipation - Miralax increased - Continue Senna - Enema if no BM today 6. Hyperlipidemia - Continue Lipitor 7. Disposition - Possible discharge tomorrow
[2017-12-30] MEDS: ATORVASTATIN CA 20 MG TABLET (FP) PO SCH (21:53)
[2017-12-31] MEDS: AMINOCAPROIC ACID 500 MG TABLET PO SCH ×2 (05:30→13:06)
--- NOTE | 2017-12-31 06:18 | PN ---
Physical Exam: SUBJECTIVE: Patient seen and examined - no overnight events. afebrile, stable. CBI clamped, draining pink to yellow urine. No further abdominal pain. Pt refused enema. One small BM yesterday AM per pt. plan for d/c today. Will d/c jimenez in AM OBJECTIVE: Vital Signs Intake & Output 12/28/17 12/29/17 12/30/17 12/31/17 23:59 23:59 23:59 23:59 Intake Total 9800 900 Output Total 31262 2350 1000 Balance -33842 -1450 -1000 Period Temp Pulse Resp BP Sys/Morelos Pulse Ox Last 24 Hr 97.3 F-98.4 F 59-66 18-20 128-156/58-75 93-97 GENERAL: A&Ox3, NAD HEAD: Normal with no signs of trauma. EYES: PERRL, sclera anicteric, conjunctiva clear. No ptosis. ENT: Ears normal, nares patent, oropharynx clear without exudates, moist mucous membranes. NECK: Trachea midline, full range of motion, supple. LUNGS: Breath sounds equal, clear to auscultation bilaterally, no wheezes, no crackles, no accessory muscle use. HEART: Regular rate and rhythm, S1, S2 without murmur, rub or gallop. ABDOMEN: Soft, NT, ND. Slight abdominal distension. Hypoactive bowel sounds, no guarding, no rebound, no hepatosplenomegaly, no masses. EXTREMITIES: 2+ DP/PT pulses, warm, well-perfused, no edema. NEUROLOGICAL: Cranial nerves II through XII grossly intact. Normal speech, gait not observed. 5/5 strength, preserved sensation to light touch in all extremities. GENITAL: No blood at meatus. Jimenez in place, no clots, blood. PSYCH: Normal mood, normal affect. SKIN: Warm, dry, normal turgor Laboratory Results - last 24 hr CBC, BMP 12/31/17 06:00 12/30/17 06:00 12/30/17 06:00 12/30/17 12/30/17 06:00 06:00 WBC 8.9 RBC 4.27 Hgb 12.7 D Hct 37.9 D MCV 88.8 MCH 29.8 MCHC 33.5 RDW 13.9 Plt Count 267 D MPV 6.8 L Sodium 139 Potassium 4.3 Chloride 98 Carbon Dioxide 31 Anion Gap 10 BUN 16 Creatinine 1.0 Random Glucose 102 Calcium 9.0 Active Medications Generic Name Dose Route Start Last Admin Trade Name Freq PRN Reason Stop Dose Admin Aminocaproic Acid 1,000 mg 12/29/17 14:30 12/31/17 05:30 Amicar - PO 1,000 mg TID BELKIS Administration Atorvastatin Calcium 20 mg 12/27/17 22:00 12/30/17 21:53 Lipitor - PO 20 mg HS BELKIS Administration CEFTRIAXONE 1 G/50 ML PREMIX 50 mls @ 100 mls/hr 12/27/17 01:30 12/30/17 10: 10 Ceftriaxone 1 Gm-D5w Bag IVPB 100 mls/hr DAILY BELKIS Administration Polyethylene Glycol 17 gm 12/29/17 22:00 12/30/17 22:00 Miralax (For Daily Use) - PO 17 gm BID BELKIS Administration Senna 2 tab 12/30/17 00:00 12/30/17 21:54 Senna - PO 2 tab HS PRN Administration CONSTIPATION no micro No imaging ASSESSMENT/PLAN: 77 yo man w/ pmh of HLD, BPH s/p TURP on 12/26, who presented with suprapubic abdominal pain and hematuria, now s/p placement of 3-way catheter for CBI by urology with persistent hematuria, passage of clots. CBI d/c'ed overnight, no further hematuria, abdominal pain. Hgb stable. still w/ constipation. #Hematuria - no hematuria overnight; Hgb stable - CBI d/c'ed at midnight; pt w/ no full abdominal, lower back pain - Urology following, recs appreciated - d/c jimenez tomorrow am - Ceftriaxone day 4 - c/w PO amicar #Anemia - likely secondary to acute blood loss. stable, 12.7 today - Trend H/H - Transfuse at Hgb <7 #PRETTY - 2/2 obstructive uropathy. Resolved - Trend lytes - Avoid nephrotoxic agents #Hyponatremia - Resolved - Trend Na #Constipation - Senna - Miralax BID - tap water enema #HLD - c/w statin #PPX - SCDs FEN PO hydration Trend lytes Regular diet Plan discussed with attending, Dr. Claudia Watkins, PGY1
[2017-12-31 08:05] LABS: ANION GAP 10 (8-16); BLOOD UREA NITROGEN 16 mg/dL (7-18); CHLORIDE 101 mmol/L (98-107); CO2 27 mmol/L (21-32); GLUCOSE,RANDOM 119 mg/dL (74-106); POTASSIUM 3.8 mmol/L (3.5-5.1); SODIUM 138 mmol/L (136-145)
--- NOTE | 2017-12-31 08:25 | PN ---
Progress Note (short form) - Note Progress Note: afebrile urine grossly clear jimenez removed for voiding trial today Problem List - Problems (1) Gross hematuria Code(s): R31.0 - GROSS HEMATURIA
[2017-12-31] MEDS ORDERED: DEXTROSE 5%-WATER - 50 ML IVPB ONE (09:18)
[2017-12-31] MEDS ORDERED: cefTRIAXone SODIUM 1 GM VIAL ONE (09:18)
[2017-12-31] MEDS: POLYETHYLENE GLYCOL 3350 119 GM BTL PO SCH (09:20)
[2017-12-31] MEDS ORDERED: CEFTRIAXONE 1 GM in DEXTROSE 5%-WATER - 50 ML IVPB SCH (10:00)
[2017-12-31 10:33] VITALS: TEMP 97.5
[2017-12-31 11:18] LABS: HEMATOCRIT 35.8 % (35.4-49); MCHC 33.6 g/dl (32.0-35.9); MEAN CELL VOLUME 89.3 fl (80-96); PLATELET COUNT 289 K/MM3 (134-434); RBC 4.01 M/mm3 (4.00-5.60); RDW 14.1 % (11.9-15.9); WHITE BLOOD COUNT 7.8 K/mm3 (4.0-10.0)
[2017-12-31] MEDS ORDERED: PT OWN MED DRAWER 7, Y5N ONE (13:04)
[2017-12-31 14:12] VITALS: BP 129/73; PULSE 67
--- NOTE | 2017-12-31 17:15 | PN ---
Teaching Attending Note Name of Resident: Arthur Watkins ATTENDING PHYSICIAN STATEMENT I saw and evaluated the patient. I reviewed the resident's note and discussed the case with the resident. I agree with the resident's findings and plan as documented. SUBJECTIVE: Patient has no complaints. Nix removed and he has voided clear urine. Had small BM yesterday. OBJECTIVE: Vital Signs Period Temp Pulse Resp BP Sys/Morelos Pulse Ox Last 24 Hr 97.5 F-98.4 F 59-67 18-20 128-146/58-75 97-97 HEART: S1S2, RRR LUNGS: Clear ABDOMEN: Soft, non-tender, non-distended, normal BS EXTREMITIES: No edema Laboratory Results - last 24 hr 12/31/17 12/31/17 06:00 06:00 WBC 7.8 RBC 4.01 Hgb 12.0 Hct 35.8 MCV 89.3 MCH 30.0 MCHC 33.6 RDW 14.1 Plt Count 289 MPV 7.0 L Sodium 138 Potassium 3.8 Chloride 101 Carbon Dioxide 27 Anion Gap 10 BUN 16 Creatinine 1.0 Random Glucose 119 H Calcium 8.0 L ASSESSMENT AND PLAN: This is a 77 year old man with a history of hyperlipidemia, BPH, TURP 12/26 who presented with abdominal pain and hematuria. 1. Gross hematuria after TURP - Resolved - Nix removed and patient is voiding clear urine - Continue Rocephin, Amicar 2. Acute blood loss anemia secondary to hematuria - Hemoglobin stable 3. Acute kidney injury secondary to obstructive uropathy - Resolved 4. Hyponatremia - Resolved 5. Constipation - Continue Senna, Miralax 6. Hyperlipidemia - Continue Lipitor 7. OK for discharge home today
--- NOTE | 2017-12-31 20:49 | DS ---
Physical Exam: SUBJECTIVE: Patient seen and examined by me this AM - no overnight events. afebrile, stable. CBI clamped, draining pink to yellow urine. No further abdominal pain. Pt refused enema. One small BM yesterday AM per pt. plan for d/c today. Will d/c jimenez in AM OBJECTIVE: Vital Signs Intake & Output 12/28/17 12/29/17 12/30/17 12/31/17 23:59 23:59 23:59 23:59 Intake Total 9800 900 670 Output Total 98631 2350 1000 Balance -45783 -1450 -330 Period Temp Pulse Resp BP Sys/Morelos Pulse Ox Last 24 Hr 97.5 F-98.4 F 59-67 18-20 128-139/58-73 97-97 PHYSICAL EXAM GENERAL: A&Ox3, NAD HEAD: Normal with no signs of trauma. EYES: PERRL, sclera anicteric, conjunctiva clear. No ptosis. ENT: Ears normal, nares patent, oropharynx clear without exudates, moist mucous membranes. NECK: Trachea midline, full range of motion, supple. LUNGS: Breath sounds equal, clear to auscultation bilaterally, no wheezes, no crackles, no accessory muscle use. HEART: Regular rate and rhythm, S1, S2 without murmur, rub or gallop. ABDOMEN: Soft, NT, ND. Slight abdominal distension. Hypoactive bowel sounds, no guarding, no rebound, no hepatosplenomegaly, no masses. EXTREMITIES: 2+ DP/PT pulses, warm, well-perfused, no edema. NEUROLOGICAL: Cranial nerves II through XII grossly intact. Normal speech, gait not observed. 5/5 strength, preserved sensation to light touch in all extremities. GENITAL: No blood at meatus. PSYCH: Normal mood, normal affect. SKIN: Warm, dry, normal turgor LABS Laboratory Results - last 24 hr CBC, BMP 12/31/17 06:00 12/31/17 06:00 12/31/17 12/31/17 06:00 06:00 WBC 7.8 RBC 4.01 Hgb 12.0 Hct 35.8 MCV 89.3 MCH 30.0 MCHC 33.6 RDW 14.1 Plt Count 289 MPV 7.0 L Sodium 138 Potassium 3.8 Chloride 101 Carbon Dioxide 27 Anion Gap 10 BUN 16 Creatinine 1.0 Random Glucose 119 H Calcium 8.0 L no micro No imaging Consults: Urology - Seen by Dr. Doyle HOSPITAL COURSE: pre-hospital - 77 y/o M with PMhx of BPH, HLD, s/p TURBT 12/26, discharged yesterday with jimenez presented with severe suprapubic abdominal pain that started after procedure. Patient states the jimenez did not drain any urine since it was placed. Patient saw blood clots pass in the jimenez bag. Urology (Dr. Doyle) saw patient in the ED and placed 3 way catheter which relieved the obstruction. Patient says he is currently asymptomatic. Denies abdominal pain, fever, nausea, vomiting, chest pain, dizziness, sob, dysuria. hospital course - Pt irrigated 3L in ED by Dr. Doyle, multiple clots evacuated, started on CBI. Labs notable for decreased in Hgb from 15 -> 12.3 -> 10.7 over first 12 hours. Cr elevated at 1.5, likely secondary to obstructive uropathy, later resolved to 1.0 with resolution of obstruction. No other significant lab abnormalities noted on presentation. No imaging, micro ordered. Pt started on rocephin ppx for UTI given urologic procedure. Received CBI for roughly two days , after d/c, pt continued to pass clots. Restarted for another day, improved significantly with resolution of hematuria, no further clots. course complicated by constipation since admission, started on bowel regimen with eventual resolution of constipation. Hgb stable for remainder of admission. Pt cleared for discharge by Dr. Doyle with outpt f/u in one week for further management of urologic tx. Date of Admission:12/28/17 Date of Discharge: 12/31/17 Pt is stable and medically cleared for discharge with outpt f/u w/ Dr. Doyle in clinic in one week for further management of urologic care. Minutes to complete discharge: 35 Discharge Summary Reason For Visit: GROSS HEMATURIA Condition: Stable - Instructions Diet, Activity, Other Instructions: During your stay at [facility], you were treated for persistent blood in your urine and inability to urinate. You were treated by our urologist, Dr. Doyle, who treated you with continuous bladder irrigation. Medications: Please continue to take all other home medications as previously directed. If you continue to experience constipation, please take Miralax by mouth twice a day. Follow-ups: Please follow-up with your primary care physician in one week for further management of your medications. Please call their office to schedule an appointment. Please follow-up with Dr. Doyle in one week in his office for further management of your urologic care. His contact number has been provided in this packet. Please call his office to make an appointment. Diet/exercise: No dietary restrictions Please return to the hospital if you experience any of the following symptoms: - Persistent blood in your urine or passing blood clots - Persistent inability to urinate - Worsening abdominal pain - Persistent fever and chills - Any new or concerning symptoms Referrals: Bora Doyle MD [Staff Physician] - 1 Week Sharri Tovar [Primary Care Provider] - 1 Week Disposition: HOME - Home Medications Comprehensive Discharge Medication List: Ambulatory Orders Tamsulosin HCl [Flomax -] 1 tab PO DAILY 12/23/17 Atorvastatin Ca [Lipitor] 20 mg PO HS 12/27/17 Polyethylene Glycol 3350 [Miralax 119 gm Btl -] 17 gm PO BID bottle 12/31/17 Sennosides [Senna -] 2 tab PO HS PRN tablet 12/31/17 This patient is new to me today: No Emergency Visit: Yes ED Registration Date: 12/28/17 Care time: The patient presented to the Emergency Department on the above date and was hospitalized for further evaluation of their emergent condition. Critical Care patient: No - Discharge Referral Referred to [facility] Med [facility] No
== END 2017-12-31 15:39 | disposition home or self-care (01) | DRG 699 ==
LOC: JER 22:27 → JERBED 12-27 01:47 → UNDOADMOB 12-27 01:54 → J7W 12-27 02:33 → JERBED 12-27 02:33 → OBSVTOIN 12-28 14:16
PROVIDERS: ADMIT Internal Medicine; ATTEND Internal Medicine
DX: T83.098A Other mechanical complication of other urinary catheter, initial encounter (principal); N17.9 Acute kidney failure, unspecified; D62 Acute posthemorrhagic anemia; E87.1 Hypo-osmolality and hyponatremia; K21.9 Gastro-esophageal reflux disease without esophagitis; N13.9 Obstructive and reflux uropathy, unspecified; E78.5 Hyperlipidemia, unspecified; N40.0 Benign prostatic hyperplasia without lower urinary tract symptoms; R31.0 Gross hematuria; K59.00 Constipation, unspecified; Y83.9 Surgical procedure, unspecified as the cause of abnormal reaction of the patient, or of later complication, without mention of misadventure at the time of the procedure
CPT/HCPCS: 36415; 80048; 80053; 85025; 85027; 85610; 85730; 86850; 86900; 86901; 94760; 99282-25; G0378; J7030

== ENCOUNTER 2021-05-28 08:58 | Emergency (ER) | payer OTHER ==
[2021-05-28] MEDS ORDERED: DEXAMETHASONE SOD PHOSPHATE 10 MG/1 ML VIAL ONE (09:12)
[2021-05-28 09:14] VITALS: BP 157/67; PULSE 78; TEMP 98.1; BMI 28.2
[2021-05-28] MEDS ORDERED: DEXAMETHASONE SOD PHOSPHATE 10 MG/1 ML VIAL IM ONE (09:18)
[2021-05-28] MEDS ORDERED: SODIUM CHLORIDE 0.9% 500 ML INFUS.BAG IV ONE (09:18)
[2021-05-28] MEDS ORDERED: FAMOTIDINE 20 MG/50 ML IVPB 20 MG/50 ML MG IVPB ONE ×2 (09:25→09:48)
[2021-05-28] MEDS ORDERED: TAMSULOSIN HCL 0.4 MG CAP PO ONE (12:08)
[2021-05-28] MEDS ORDERED: TAMSULOSIN HCL 0.4 MG CAP ONE (12:22)
== END 2021-05-28 13:09 | disposition home or self-care (01) ==
LOC: JER 08:58
PROC: 3E023GC Introduction of Other Therapeutic Substance into Muscle, Percutaneous Approach (ICD-10-PCS; principal; 2021-05-28)
PROC: 3E033GC Introduction of Other Therapeutic Substance into Peripheral Vein, Percutaneous Approach (ICD-10-PCS; 2021-05-28)
DX: R22.0 Localized swelling, mass and lump, head (principal)
CPT/HCPCS: 99284-25; J1100

== ENCOUNTER 2022-02-13 00:59 | Emergency (ER) | payer OTHER ==
[2022-02-13] MEDS ORDERED: SODIUM CHLORIDE 0.9% 500 ML INFUS.BAG IV ONE (01:16)
[2022-02-13] MEDS ORDERED: predniSONE 20 MG TABLET (UD) PO ONE (01:16)
[2022-02-13] MEDS ORDERED: FAMOTIDINE 20 MG/50 ML IVPB 20 MG/50 ML MG IVPB ONE (01:16)
[2022-02-13] MEDS ORDERED: predniSONE 20 MG TABLET (UD) ONE (01:28)
[2022-02-13] MEDS ORDERED: FAMOTIDINE 10 MG/ML VIAL IVPB ONE (01:29)
[2022-02-13 01:30] VITALS: BP 115/82; PULSE 73; TEMP 98.2; BMI 28.2
== END 2022-02-13 04:21 | disposition home or self-care (01) ==
LOC: JER 00:59
PROC: 3E033GC Introduction of Other Therapeutic Substance into Peripheral Vein, Percutaneous Approach (ICD-10-PCS; principal; 2022-02-13)
PROC: 3E033GC Introduction of Other Therapeutic Substance into Peripheral Vein, Percutaneous Approach (ICD-10-PCS; 2022-02-13)
DX: L29.9 Pruritus, unspecified (principal)
CPT/HCPCS: 99284-25

== ENCOUNTER 2024-06-29 04:16 | Day surgery (SDC) | payer OTHER ==
[2024-06-28 08:45] VITALS: BMI 26.6
[2024-06-29 06:19] VITALS: RESP 18; TEMP 97.1
[2024-06-29] MEDS ORDERED: VANCOMYCIN 1,000 MG VIAL (RESTRICTED TO ID ONLY) ONE (07:44)
[2024-06-29] MEDS ORDERED: ETOMIDATE 20 MG/10 ML VIAL IVPUSH ONE (07:51)
[2024-06-29] MEDS ORDERED: SUCCINYLCHOLINE CHLORIDE 200 MG/10 ML SYRINGE ONE (07:57)
[2024-06-29] MEDS ORDERED: PROPOFOL 20 ML ONE (07:57)
[2024-06-29] MEDS: VANCOMYCIN 1,000 MG VIAL (RESTRICTED TO ID ONLY) IVPB ONE (08:05)
[2024-06-29] MEDS ORDERED: oxyCODONE HCL 5 MG TABLET PO PRN ×2 (08:42→08:58)
[2024-06-29] MEDS ORDERED: DEXTROSE 5%-0.45% SALINE 1,000 ML IV SCH (08:45)
[2024-06-29] MEDS ORDERED: LACTATED RINGERS SOLUTION 1,000 ML IV SCH (09:00)
[2024-06-29] MEDS: amLODIPine BESYLATE 10 MG TABLET (FP) PO ONE (10:29)
[2024-06-29 13:08] VITALS: BP 140/71; PULSE 55
== END 2024-06-29 11:40 | disposition home or self-care (01) ==
LOC: JASU-SURG 04:16
PROVIDERS: ATTEND Urology
PROC: 0TFB8ZZ Fragmentation in Bladder, Via Natural or Artificial Opening Endoscopic (ICD-10-PCS; principal; 2024-06-29 07:30)
DX: N21.0 Calculus in bladder (principal)
CPT/HCPCS: 36415; 82360; 88300-TC; 94760; C1758

== ENCOUNTER 2024-06-30 20:24 | Emergency (ER) | payer OTHER ==
[2024-06-30 20:36] VITALS: BP 181/74; PULSE 76; RESP 20; TEMP 97.7; BMI 27.4
== END 2024-06-30 21:12 | disposition home or self-care (01) ==
LOC: JER 20:24
DX: T83.031A Leakage of indwelling urethral catheter, initial encounter (principal); Y83.1 Surgical operation with implant of artificial internal device as the cause of abnormal reaction of the patient, or of later complication, without mention of misadventure at the time of the procedure
CPT/HCPCS: 99283-25